=== PATIENT | female | born 1950 | race Caucasian/White ===

== ENCOUNTER 2019-05-04 14:44 | Outpatient (CLI) | payer OTHER, SELFPAY ==
--- NOTE | 2019-05-04 14:55 | MM_ITS ---
WS: [id number] BILATERAL DIGITAL SCREENING MAMMOGRAPHY WITH CAD CLINICAL INFORMATION: SCREENING HISTORY: Screening mammogram. No current complaints. COMPARISON: December 03, 2015 and November 28, 2014 TECHNIQUE: Bilateral CC and MLO views. FINDINGS: Scattered fibroglandular densities bilaterally. No suspicious focal mass, asymmetry, calcifications, or architectural distortion. No evidence of malignancy. Lucent centered calcifications. Vascular calc ifications. Clustered calcifications. MM/[id number] IMPRESSION: BI-RADS: 2-Benign FOLLOW UP: 1 Year Follow-up Recommend return to annual screening mammography.
== END 2019-05-04 14:45 | disposition home or self-care (01) ==
PROVIDERS: Family Provider Family Medicine; PCP Family Medicine; Visit Provider Nurse Practitioner Family
DX: Z12.31 Encounter for screening mammogram for malignant neoplasm of breast (principal)
CPT/HCPCS: 77067

== ENCOUNTER 2021-08-12 13:15 | Outpatient (CLI) | payer MEDICARE, SELFPAY ==
--- NOTE | 2021-08-12 13:22 | MM_ITS ---
WS: [id number] BILATERAL 3D TOMOSYNTHESIS DIGITAL SCREENING MAMMOGRAPHY WITH CAD CLINICAL INFORMATION: SCREEN HISTORY: Screening mammogram. No current complaints. COMPARISON: May 04, 2019 TECHNIQUE: Bilateral CC and MLO views. FINDINGS: Scattered fibroglandular densities bilaterally. Stable punctate and clustered calcifications. Vascula r calcification. Stable intramammary lymph node upper outer LEFT breast. No suspicious focal mass, as ymmetry, calcifications, or architectural distortion. No evidence of malignancy. MM/[id number] IMPRESSION: BI-RADS: 2-Benign FOLLOW UP: 1 Year Follow-up Recommend return to annual screening mammography.
== END 2021-08-12 13:16 | disposition home or self-care (01) ==
LOC: RAD 13:18
PROVIDERS: PCP Family Medicine; Visit Provider Nurse Practitioner Family
DX: Z12.31 Encounter for screening mammogram for malignant neoplasm of breast (principal)
CPT/HCPCS: 77063; 77067

== ENCOUNTER → 2021-09-03 11:40 | Outpatient (BNVA) | payer MEDICARE, SELFPAY | PROVIDERS: PCP Family Medicine; Visit Provider Family Medicine | DX: I10 Essential (primary) hypertension (principal); E78.5 Hyperlipidemia, unspecified; G89.29 Other chronic pain | CPT/HCPCS: 80053; 80061; 84443; 85025 ==

== ENCOUNTER → 2021-12-03 11:30 | Outpatient (BNVA) | payer MEDICARE, SELFPAY | PROVIDERS: PCP Family Medicine; Visit Provider Family Medicine | DX: I10 Essential (primary) hypertension (principal); M10.9 Gout, unspecified; E78.5 Hyperlipidemia, unspecified; G89.29 Other chronic pain | CPT/HCPCS: 80053; 80061; 84443; 84550; 85025 ==

== ENCOUNTER → 2022-01-10 10:32 | Outpatient (BNVA) | payer MEDICARE, SELFPAY | PROVIDERS: PCP Family Medicine; Visit Provider Family Medicine | DX: M25.511 Pain in right shoulder (principal) | CPT/HCPCS: 73030 ==

== ENCOUNTER → 2022-03-04 12:40 | Outpatient (BNVA) | payer MEDICARE, SELFPAY | PROVIDERS: PCP Family Medicine; Visit Provider Family Medicine | DX: I10 Essential (primary) hypertension (principal); M10.9 Gout, unspecified; E78.5 Hyperlipidemia, unspecified; G89.29 Other chronic pain | CPT/HCPCS: 80053; 80061; 84443; 84550; 85025 ==

== ENCOUNTER → 2022-06-16 10:58 | Outpatient (BNVA) | payer MEDICARE, SELFPAY | PROVIDERS: PCP Family Medicine; Visit Provider Nurse Practitioner Family | DX: R05.8 Other specified cough (principal) | CPT/HCPCS: 87400; 87426 ==

== ENCOUNTER 2022-08-21 13:00 | Outpatient (CLI) | payer MEDICARE, SELFPAY ==
--- NOTE | 2022-08-21 13:08 | MM_ITS ---
WS: [id number] BILATERAL SCREENING DIGITAL TOMOSYNTHESIS MAMMOGRAM WITH CAD HISTORY: SCREENING COMPARISON: 08/12/2021 and 05/04/2019 Bilateral CC and MLO views with tomosynthesis and synthetic mammography submitted. Computer aided det ection analyzed. Breast composition: There are scattered areas of fibroglandular density. No suspicious masses, microc alcifications or architectural distortion. Benign lucent centered calcifications within each breast. MM/[id number] IMPRESSION: BI-RADS: 2-Benign FOLLOW UP: 1 Year Follow-up
== END 2022-08-21 13:01 | disposition home or self-care (01) ==
PROVIDERS: PCP Family Medicine; Visit Provider Family Medicine
DX: Z12.31 Encounter for screening mammogram for malignant neoplasm of breast (principal)
CPT/HCPCS: 77063; 77067

== ENCOUNTER → 2022-10-17 15:00 | Outpatient (BNVA) | payer MEDICARE, SELFPAY | PROVIDERS: PCP Family Medicine; Visit Provider Nurse Practitioner Family | DX: R39.9 Unspecified symptoms and signs involving the genitourinary system (principal) | CPT/HCPCS: 81000 ==

== ENCOUNTER → 2022-10-20 16:26 | Outpatient (BNVA) | payer MEDICARE, SELFPAY | PROVIDERS: PCP Family Medicine; Visit Provider Nurse Practitioner Family | DX: R60.9 Edema, unspecified (principal) | CPT/HCPCS: 80053; 83880; 85025 ==

== ENCOUNTER → 2022-11-25 14:36 | Outpatient (BNVA) | payer MEDICARE, SELFPAY | PROVIDERS: PCP Family Medicine; Visit Provider Nurse Practitioner Family | DX: R60.9 Edema, unspecified (principal) | CPT/HCPCS: 80053; 83880; 85025 ==

== ENCOUNTER → 2023-06-08 13:16 | Outpatient (BNVA) | payer MEDICARE, SELFPAY | PROVIDERS: PCP Family Medicine; Visit Provider Family Medicine | DX: I10 Essential (primary) hypertension (principal); E78.5 Hyperlipidemia, unspecified; M10.9 Gout, unspecified | CPT/HCPCS: 80053; 80061; 84443; 84550; 85025 ==

== ENCOUNTER 2023-09-09 13:43 | Outpatient (CLI) | payer MEDICARE, SELFPAY ==
--- NOTE | 2023-09-09 13:49 | XRR_ITS ---
PROCEDURE INFORMATION: Exam: XR Left Shoulder Exam date and time: 09/09/2023 2:03 PM Age: 72 years old Clinical indication: Injury or trauma; Fall; Blunt trauma (contusions or hematomas); Shoulder; Left; Injury date: 1 week ago; Additional info: M25.512 - pain in left shoulder TECHNIQUE: Imaging protocol: Radiologic exam of the left shoulder. Views: 2 or more views. COMPARISON: No relevant prior studies available. FINDINGS: Bones/joints: Normal. No fracture or dislocation. No acute osseous or joint abnormality. Soft tissues: Normal. XR/XR shoulder LT min 2V* [id number] IMPRESSION: No acute findings.
== END 2023-09-09 13:44 | disposition home or self-care (01) ==
LOC: RAD 13:44
PROVIDERS: PCP Family Medicine; Visit Provider Family Medicine
DX: S40.012A Contusion of left shoulder, initial encounter (principal); M25.512 Pain in left shoulder; W19.XXXA Unspecified fall, initial encounter
CPT/HCPCS: 73030

== ENCOUNTER → 2023-09-24 11:10 | Outpatient (BNVA) | payer MEDICARE, SELFPAY | PROVIDERS: PCP Family Medicine; Visit Provider Family Medicine | DX: R30.0 Dysuria (principal) | CPT/HCPCS: 81000 ==

== ENCOUNTER → 2023-10-07 15:17 | Outpatient (BNVA) | payer MEDICARE, SELFPAY | PROVIDERS: PCP Family Medicine; Visit Provider Family Medicine | DX: R30.0 Dysuria (principal) | CPT/HCPCS: 81000 ==

== ENCOUNTER → 2023-10-19 14:37 | Outpatient (BNVA) | payer MEDICARE, SELFPAY | PROVIDERS: PCP Family Medicine; Visit Provider Family Medicine | DX: R05.9 Cough, unspecified (principal); U07.1 COVID-19 | CPT/HCPCS: 87426 ==

== ENCOUNTER 2023-11-24 06:30 | Outpatient (RCR) | payer MEDICARE, SELFPAY | END 2023-12-24 23:59 | disposition home or self-care (01) | LOC: TPT 06:30 | PROVIDERS: PCP Nurse Practitioner Family; Visit Provider Nurse Practitioner Family | DX: M25.512 Pain in left shoulder (principal) | CPT/HCPCS: 97110; 97162 ==

== ENCOUNTER → 2023-11-30 14:15 | Outpatient (BNVA) | payer MEDICARE, SELFPAY | PROVIDERS: PCP Nurse Practitioner Family; Visit Provider Podiatrist Foot & Ankle Surgery | DX: M21.70 Unequal limb length (acquired), unspecified site (principal) | CPT/HCPCS: 77073 ==

== ENCOUNTER → 2023-12-14 10:52 | Outpatient (BNVA) | payer MEDICARE, SELFPAY | PROVIDERS: PCP Nurse Practitioner Family; Referring Provider Nurse Practitioner Family; Visit Provider Specialist | DX: M25.512 Pain in left shoulder (principal); G89.29 Other chronic pain | CPT/HCPCS: 20610; 73030; 99204; J1100; J2795; J3301 ==

== ENCOUNTER → 2023-12-17 12:20 | Outpatient (BNVA) | payer MEDICARE, SELFPAY | PROVIDERS: PCP Nurse Practitioner Family; Visit Provider Nurse Practitioner Family | DX: E78.5 Hyperlipidemia, unspecified (principal); M10.9 Gout, unspecified | CPT/HCPCS: 80053; 80061; 84443; 84550; 85025 ==

== ENCOUNTER 2023-12-25 06:00 | Outpatient (RCR) | payer MEDICARE, SELFPAY | END 2024-01-19 23:59 | disposition home or self-care (01) | LOC: TPT 06:00 | PROVIDERS: PCP Nurse Practitioner Family; Visit Provider Nurse Practitioner Family | DX: M25.512 Pain in left shoulder (principal) | CPT/HCPCS: 97110 ==

== ENCOUNTER → 2024-03-18 10:28 | Outpatient (BNVA) | payer MEDICARE, SELFPAY | PROVIDERS: PCP Nurse Practitioner Family; Visit Provider Specialist | DX: M19.012 Primary osteoarthritis, left shoulder | CPT/HCPCS: 20610; J1100; J2795; J3301 ==

== ENCOUNTER → 2024-04-08 12:29 | Outpatient (BNVA) | payer MEDICARE, SELFPAY | PROVIDERS: Family Provider Nurse Practitioner Family; PCP Nurse Practitioner Family; Visit Provider Nurse Practitioner Family | DX: R19.7 Diarrhea, unspecified (principal) | CPT/HCPCS: 83630; 87045; 87177; 87209; 87338; 87427; 87449 ==

== ENCOUNTER → 2024-05-25 13:11 | Outpatient (BNVA) | payer MEDICARE, SELFPAY | PROVIDERS: Family Provider Nurse Practitioner Family; PCP Nurse Practitioner Family; Visit Provider Nurse Practitioner Family | DX: R19.7 Diarrhea, unspecified (principal) | CPT/HCPCS: 83993; 87493 ==

== ENCOUNTER → 2024-06-10 10:11 | Outpatient (BNVA) | payer MEDICARE, SELFPAY | PROVIDERS: Family Provider Nurse Practitioner Family; PCP Nurse Practitioner Family; Visit Provider Specialist | DX: M19.012 Primary osteoarthritis, left shoulder (principal) | CPT/HCPCS: 20610; J1100; J2795; J3301; J9999 ==

== ENCOUNTER → 2024-06-22 12:12 | Outpatient (BNVA) | payer MEDICARE, SELFPAY | PROVIDERS: Family Provider Nurse Practitioner Family; PCP Nurse Practitioner Family; Visit Provider Nurse Practitioner Family | DX: I10 Essential (primary) hypertension (principal) | CPT/HCPCS: 85025 ==

== ENCOUNTER 2024-08-10 13:24 | Emergency (ER) | payer MEDICARE, SELFPAY ==
[2024-08-10 13:28] VITALS: BP 109/63; PULSE 72; RESP 16; TEMP 36.7; O2SAT 96; BMI 29.0
--- NOTE | 2024-08-10 14:17 | W.ED.NAVMDI ---
HPI - Nausea/Vomiting/Diarrhea General: Chief complaint: Nausea/Vomiting/Diarrhea Stated complaint: severe diarrhea, vomitting Time Seen by Provider: 08/10/24 13:52 History of Present Illness: 73-year-old female has had months of chronic diarrhea has had extensive workup including endoscopy stool cultures etc. Today recently had stopped the omeprazole concerned that it may actually be inducing more vomiting. She did okay for a few days now she is having significant acid reflux and feels like she is not keeping much down in terms of food or fluids. No fever sweats chills no melena medic easy melena hematemesis cough cramps no dysuria urgency or frequency no chest pain no shortness of breath Associated symtoms: Denies chest pain or dysuria Related Data Home Medications ?Medication ?Instructions ?Recorded ?Confirmed aspirin 81 mg tablet,delayed 81 mg PO QAM 09/03/21 08/10/24 release (Adult Low Dose Aspirin) fexofenadine 180 mg tablet 180 mg PO QAM 09/03/21 08/10/24 (Allergy Relief (fexofenadine)) inulin 2 gram chewable tablet 2 g PO DAILY PRN Constipation 09/03/21 08/10/24 (Fiber Gummies) coenzyme Q10 10 mg capsule 10 mg PO TID 05/21/23 08/10/24 allopurinol 300 mg tablet 300 mg PO QAM 08/10/24 08/10/24 amlodipine 2.5 mg tablet 2.5 mg PO DAILY 08/10/24 08/10/24 amlodipine 5 mg tablet 5 mg PO DAILY 08/10/24 08/10/24 clobetasol 0.05 % topical cream 1 applic topical BID 08/10/24 08/10/24 neomycin 3.5 mg/g-polymyxin B 1 applic ophthalmic (eye) DAILY 08/10/24 08/10/24 10,000 unit/g-dexameth 0.1 % eye oint omeprazole 40 mg capsule,delayed 40 mg PO DAILY 08/10/24 08/10/24 release pravastatin 40 mg tablet 40 mg PO QPM 08/10/24 08/10/24 triamcinolone acetonide 0.1 % 1 applic topical BID 08/10/24 08/10/24 topical cream valsartan 160 mg tablet 160 mg PO QAM 08/10/24 08/10/24 Previous Rx's ?Medication ?Instructions ?Recorded Orthopedic shoes with a 3cm #1 ea 11/30/23 external lift to left gabapentin 300 mg capsule 300 mg PO TID #270 caps 12/17/23 celecoxib 200 mg capsule (Celebrex) 200 mg PO BID #180 caps 05/05/24 Allergies Allergy/AdvReac Type Severity Reaction Status Date / Time cefdinir AdvReac Severe ADR-Diarrhe Verified 08/10/24 13:34 a Review of Systems Const: Denies: fever(s) or chills Card: Denies: chest pain Resp: Denies: dyspnea GI: Denies: abdominal pain : Denies: dysuria, urinary frequency or urinary urgency Musc: Denies: neck pain or back pain Skin/Breast: Denies: rash PFSH ED PFSH: Medical History Chronic GERD Family history of Crohn's disease Diarrhea Left shoulder pain Enrolled in chronic care management Hypertension Blind Gout Glaucoma Hyperlipidemia Chronic pain Cataract and glaucoma syndrome Surgical History History of bilateral total hip arthroplasty History of left oophorectomy History of back surgery Family History Mother Hypertension Heart disease Cancer breast cancer with mets Family/Other Diabetes Cancer Social History Smoking and tobacco/nicotine status: never used tobacco/nicotine Alcohol intake: never Substance/Drug Use: never Caregiver/support person: Yes (son) Lives independently: Yes Housing: House Marital status: / Current occupational status: disabled Current gender identity: Female Special haydee needs: No Female Reproductive History: Para: 2 Physical Exam HENMT: COMMON NORMALS: normocephalic, atraumatic and hearing grossly normal bilaterally HEAD & SCALP: normocephalic and atraumatic Resp: COMMON NORMALS: normal respiratory effort, No retractions, No use of accessory muscles and clear to auscultation bilaterally AUSCULTATION: clear to auscultation bilaterally Cardio: COMMON NORMALS: regular rate, regular rhythm and No murmurs present (Cardio) RATE: regular rate RHYTHM: regular rhythm GI: COMMON NORMALS: Soft to palpation and No hepatosplenomegaly present AUSCULTATION: Yes normoactive bowel sounds PALPATION: Yes Soft to palpation, No Tenderness to palpation present (GI), No Guarding due to palpation present (GI) and Yes No hepatosplenomegaly present Extremity: COMMON NORMALS: normal to inspection, capillary refill normal, no clubbing, cyanosis or edema, no calf tenderness and no pedal edema Skin: COMMON NORMALS: no rashes or lesions noted GENERAL SKIN EXAM: no rashes or lesions noted Course Vital Signs: Vital signs: Vital Signs Temperature 98.0 F 08/10/24 13:28 Pulse Rate 63 08/10/24 16:28 Respiratory Rate 16 08/10/24 13:28 Blood Pressure 100/58 08/10/24 16:28 Pulse Oximetry 99 08/10/24 16:28 MDM - Nausea/Vomiting/Diarrhea Medical Decision Making Mild dehydration with slight increase in BUN and creatinine fluids given. We did repeat stool cultures and C. difficile she has not recently been on antibiotics. She has had extensive workup as an outpatient with no significant findings almost sounds as this may be more functional just given the history that they gave us. Patient will be discharged home clear liquid diet. Follow-up with primary care doctor. Lab Data 08/10/24 14:16 08/10/24 14:16 Laboratory Results WBC 9.25 10^3/uL (3.29-11.43) 08/10/24 14:16 RBC 3.19 10^6/uL (3.85-5.65) L 08/10/24 14:16 Hgb 11.10 g/dL (11.27-16.99) L 08/10/24 14:16 Hct 35.4 % (36-47) L 08/10/24 14:16 MCV 111.0 fl (85-98) H 08/10/24 14:16 MCH 34.8 pg (27-33) H 08/10/24 14:16 MCHC 31.4 g/dL (30-55) 08/10/24 14:16 RDW 13.4 % (12.1-15.1) 08/10/24 14:16 Plt Count 195 10^3/cmm (157-399) 08/10/24 14:16 MPV 9.4 fL (7.4-10.4) 08/10/24 14:16 Neut % (Auto) 76.0 % 08/10/24 14:16 Lymph % (Auto) 14.7 % 08/10/24 14:16 [place] % (Auto) 8.0 % 08/10/24 14:16 Eos % (Auto) 0.6 % 08/10/24 14:16 Baso % (Auto) 0.4 % 08/10/24 14:16 Neut # (Auto) 7.02 10^3/uL (1.8-7.7) 08/10/24 14:16 Lymph # (Auto) 1.4 10^3/uL (0.8-4.8) 08/10/24 14:16 [place] # (Auto) 0.7 10^3/uL (0.2-0.9) 08/10/24 14:16 Eos # (Auto) 0.1 10^3/uL (0.0-0.8) 08/10/24 14:16 Baso # (Auto) 0.0 10^3/uL (0.0-0.1) 08/10/24 14:16 Nucleated RBC % (auto) 0 % 08/10/24 14:16 Nucleated RBCs # 0.0 /100WBC 08/10/24 14:16 Sodium 138 mmol/L (136-145) 08/10/24 14:16 Potassium 4.5 mmol/L (3.5-5.1) 08/10/24 14:16 Chloride 111 mmol/L (98-107) H 08/10/24 14:16 Carbon Dioxide 13 mmol/L (22-29) L 08/10/24 14:16 Anion Gap 18.5 (5-19) 08/10/24 14:16 BUN 26 mg/dL (8-23) H 08/10/24 14:16 Creatinine 1.6 mg/dL (0.5-0.9) H 08/10/24 14:16 GFR Calculation Not Reportable 08/10/24 14:16 Glucose 108 mg/dL (65-115) 08/10/24 14:16 Calculated Osmolality 291 mOsm/kg (285-295) 08/10/24 14:16 Calcium 9.9 mg/dL (8.5-10.5) 08/10/24 14:16 Total Bilirubin 0.5 mg/dL (0.15-1.2) 08/10/24 14:16 AST 22 U/L (0-32) 08/10/24 14:16 ALT 12 U/L (0-33) 08/10/24 14:16 Alkaline Phosphatase 86 U/L (35-105) 08/10/24 14:16 Total Protein 7.1 g/dL (6.6-8.7) 08/10/24 14:16 Albumin 4.3 g/dL (3.5-5.2) 08/10/24 14:16 Globulin 2.8 g/dL (1.3-4.6) 08/10/24 14:16 Lipase 29 U/L (13-60) 08/10/24 14:16 C. difficile (PCR) Negative (Negative) 08/10/24 16:01 No radiology studies performed this visit Discharge Plan Discharge Patient Disposition: Home Clinical Impression: Diarrhea, Dehydration Condition: Stable Prescriptions: No Action coenzyme Q10 10 mg capsule 10 mg PO TID aspirin [Adult Low Dose Aspirin] 81 mg tablet,delayed release (DR/EC) 81 mg PO QAM fexofenadine [Allergy Relief (fexofenadine)] 180 mg tablet 180 mg PO QAM Fiber Gummies 2 gram tablet,chewable 2 g PO DAILY PRN (Reason: Constipation) gabapentin 300 mg capsule 300 mg PO TID Qty: 270 3RF (DME) Orthopedic shoes with a 3cm external lift to left See Rx Instructions .Route .MEDSUPPLY Qty: 1 0RF Rx Instructions: As directed celecoxib [Celebrex] 200 mg capsule 200 mg PO BID Qty: 180 3RF omeprazole 40 mg capsule,delayed release(DR/EC) 40 mg PO DAILY neomycin-polymyxin B-dexameth 3.5 mg/g-10,000 unit/g-0.1 % ointment 1 applic ophthalmic (eye) DAILY pravastatin 40 mg tablet 40 mg PO QPM clobetasol 0.05 % cream 1 applic topical BID amlodipine 2.5 mg tablet 2.5 mg PO DAILY Rx Instructions: Along with 5mg to=7.5mg total amlodipine 5 mg tablet 5 mg PO DAILY Rx Instructions: Along with 2.5mg to=7.5mg total triamcinolone acetonide 0.1 % cream 1 applic topical BID allopurinol 300 mg tablet 300 mg PO QAM valsartan 160 mg tablet 160 mg PO QAM Discharge Orders: Discharge ED (Routine); Ordered 08/10/24 Ordered By: Leni Poe Referrals: Suzan Angelo FNP [Primary Care Provider, Family Practice] Discharge Diet: Advance as tolerated Patient Instructions: Opioid Safety, Pain Management Activity Restrictions/Additional Instructions: Thank you for choosing [facility] for your healthcare needs today. You have been screened and evaluated and felt safe for discharge. Health conditions do change or evolve sometimes and as such it is important that you follow up with your Primary Doctor to be re checked, 3-5 days is a general good time frame for follow up. You are always welcome to return to the ED for re assessment if your symptoms are worsening or you have new concerns Print Language: Serbian Coding Level of Care Code ED Journalism Instructor for Maris Abraham
[2024-08-10 14:25] LABS: Basophils % 0.4 %; Eosinophils # 0.1 10^3/uL (0.0-0.8); Eosinophils % 0.6 %; Hematocrit 35.4 % (36-47); Lymphocytes # 1.4 10^3/uL (0.8-4.8); Lymphocytes % 14.7 %; Mean Corpuscular HGB Conc 31.4 g/dL (30-55); Mean Corpuscular Hemoglobin 34.8 pg (27-33); Mean Platelet Volume 9.4 fL (7.4-10.4); Monocytes # 0.7 10^3/uL (0.2-0.9); Neutrophils # 7.02 10^3/uL (1.8-7.7); Nucleated Red Blood Cells % 0 %; Platelet Count 195 10^3/cmm (157-399); Red Blood Count 3.19 10^6/uL (3.85-5.65); Red Cell Distribution Width 13.4 % (12.1-15.1); White Blood Count 9.25 10^3/uL (3.29-11.43)
[2024-08-10 14:34] VITALS: BP 114/71; PULSE 74; O2SAT 97
[2024-08-10] MEDS: lidocaine 2% viscous 15 ML, aluminum-mag hydrox-simethicon 30 ML, sucralfate oral liq 1 GM PO (14:38)
[2024-08-10] MEDS: sodium chloride 0.9% 1,000 ML 999 ML IV ×2 (14:38→15:25)
[2024-08-10 14:42] LABS: Alanine Aminotransferase 12 U/L (0-33); Albumin Level 4.3 g/dL (3.5-5.2); Alkaline Phosphatase 86 U/L (35-105); Blood Urea Nitrogen 26 mg/dL (8-23); Calcium 9.9 mg/dL (8.5-10.5); Carbon Dioxide 13 mmol/L (22-29); Chloride 111 mmol/L (98-107); Creatinine Clr Calc Pharmacy 31.1556; Globulin 2.8 g/dL (1.3-4.6); Glucose 108 mg/dL (65-115); Lipase 29 U/L (13-60); Osmolality Calculated 291 mOsm/kg (285-295); Sodium 138 mmol/L (136-145); Total Bilirubin 0.5 mg/dL (0.15-1.2); Total Protein 7.1 g/dL (6.6-8.7)
[2024-08-10 14:44] LABS: Anion Gap 18.5 (5-19); Aspartate Amino Transferase 22 U/L (0-32); Potassium 4.5 mmol/L (3.5-5.1)
[2024-08-10 16:28] VITALS: BP 100/58; PULSE 63; O2SAT 99
[2024-08-10 17:33] LABS: C.Diff PCR (Lab) NEGATIVE (Negative)
== END 2024-08-10 16:31 | disposition home or self-care (01) ==
PROVIDERS: Emergency Medicine; Emergency Provider Family Medicine; PCP Nurse Practitioner Family
DX: R19.7 Diarrhea, unspecified (principal); E86.0 Dehydration; Z79.82 Long term (current) use of aspirin; E78.5 Hyperlipidemia, unspecified; I10 Essential (primary) hypertension
CPT/HCPCS: 36415; 80053; 83690; 85025; 87045; 87427; 87449; 87493; 99283; J7030; J9999

== ENCOUNTER → 2024-08-19 11:34 | Outpatient (BNVA) | payer MEDICARE, SELFPAY | PROVIDERS: PCP Nurse Practitioner Family; Visit Provider Nurse Practitioner Family | DX: R19.7 Diarrhea, unspecified (principal) | CPT/HCPCS: 82150 ==

== ENCOUNTER 2024-08-21 23:30 | Emergency (ER) | payer MEDICARE, SELFPAY ==
--- OUTSIDE RECORDS SUMMARY | 2024-07-25 10:00 | XMS_ITS ---
Author Organization [facility] Address [address] [place] [address] Care Team Providers Care Hair Dryer Name Role Phone Suzan Angelo APRN Primary Care Provider Pastor Bill Unavailable [phone] Russ Chavira Unavailable [phone] REASON FOR VISIT chronic diarrhea, abdominal pain Medications Medication SIG (Take, Route, Frequency, Duration) Notes Start Date End Date Status amLODIPine Besylate 2.5 MG 1 tablet in a ddition to 5mg tab Orally once daily in evening for blood pressure for 90 days 08/19/2021 Active Gabapentin 300 MG 1 capsule Orally TID for 90 days Active Fexofenadine HCl 180 MG 1 tablet Swallow whole with water; do not take with fruit juices. Orally Once a day Active Centrum Adults - 1 tablet Orally once daily Active Aspirin 81 81 MG 1 tablet Orally Once a day Active amLODIPine Besylate 5 MG TAKE 1 TABLET E VERY EVENING for 90 Active Allopurinol 100 MG TAKE 1 TABLET TWICE DAILY for 90 Active Valsartan 80 MG 1 tablet Orally Once a day for 30 days 08/21/2021 Active Triamcinolone Acetonide 0.1 % APPLY A THIN FILM TOPICALLY TO AFFECTED AREA(S) TWICE DAILY FOR MAX LENGTH OF 14 DAYS for 60 Active Pravastatin Sodium 80 MG TAKE 1 TABLET E VERY DAY AT BEDTIME for 90 Active Omeprazole 20 MG 1 capsule 1/2 to 1 h our before morning meal Orally Once a day Active Latanoprost 0.005 % 1 drop into affected eye in the evening Ophthalmic Once a day Active Social History Tobacco Use: Social History Observation Description Date Details (start date - stop date) Never Smoker NA - NA Tobacco Control (Standard) Question Answer Notes Tobacco use: Nonsmoker Problems Problem Type SNOMED Code ICD Code Onset Dates Problem Status W/U Status Risk Notes Problem Gastroesophageal reflux disease (876329569) Gastroesophageal reflux disease, unspecified whether esophagitis present (K21.9) Active confirmed Encounters Encounter Location Date Provider Diagnosis [facility] [address] [place] [address] 07/25/2024 Russ Chavira Gastroesophageal ref lux disease, unspecified whether esophagitis present K21.9 and Chronic diarrhea K52.9 Assessments Encounter Date Diagnosis (ICD Code) Assessment Notes Treatment Notes Treatment Clinical Notes Section Notes 07/25/2024 Gastroesophageal reflux disease, unspecified whether esophagitis present (ICD-10 - K21.9) Diagnostic EGD today 07/25/2024 Chronic diarrhea (ICD-10 - K52.9) Diagnostic colonoscopy today. Plan Of Treatment Treatment Notes Assessment Notes Gastroesophageal reflux dise ase, unspecified whether esophagitis present Diagnostic EGD today Chronic diarrhea Diagnostic colonosco py today. 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 Chronic diarrhea, abdominal pain. * HPI: P arsenioviar Note: Ms. Salmon is a 73-year-old female here for diagnostic EGD and colonoscopy. History of chronic GERD with breakthrough symptoms despite omeprazole. Complains of chronic diarrhea with up to 15+ stools per day and occasional associated lower abdominal pain. Family history of Crohn's disease in her mother and sister. No family history of colon cancer. * ROS: G eneral - Multi System: Constitutional D enies fever, chills, recent weight loss.?Cardiovascular D enies any recent chest pain. R espiratory D enies any shortness of breath, cough. G astrointestinal S ee HPI. * Medical History: I rritable bowel syndrome, Gout, Degenerative bone disease, Eczema, Cataracts, bilateral, Glaucoma, Bradycardia, Essential hypertension, Hypercholesterolemia, Back pain, Osteoarthritis, hip, Covid, 06/2021. * Surgical History: ( B) Hip replacement , Ovary removal; left , Back surgery x 5 , Cataract surgery; bilateral , (B) eye removal 06/2023, Colonoscopy- [place] - 10 yr recall - diverticulosis only 2014. * Hospitalization/Major Diagno stic Procedure: H ip replacement , Ovary removal , Back surgery . * Family History: F ather: , Pancreatic cancer, type 2 diabetes, rheumatoid arthritis, alcoholism. M other: , IBS, osteoporosis, cataracts, congestive heart failure, breast cancer, lung cancer, bronchiectasis. S iblings: Triplets: Orville - diverticulitis, IBSJan: Part of colon removed. IBS, ulcers. passed in May. * Social History: T obacco Use: T obacco Control (Standard) T obacco use: N onsmoker * Medications: T aking Allopurinol 100 MG Tablet TAKE 1 TABLET TWICE DAILY , Taking amLODIPine Besylate 5 MG Tablet TAKE 1 TABLET EVERY EVENING , Taking amLODIPine Besylate 2.5 MG Tablet 1 tablet in addition to 5mg tab Orally once daily in evening for blood pressure , Taking Aspirin 81 81 MG Tablet Delayed Release 1 tablet Orally Once a day , Taking Centrum Adults - Tablet 1 tablet Orally once daily , Taking Fexofenadine HCl 180 MG Tablet 1 tablet Swallow whole with water; do not take with fruit juices. Orally Once a day , Taking Gabapentin 300 MG Capsule 1 capsule Orally TID , Taking Latanoprost 0.005 % Solution 1 drop into affected eye in the evening Ophthalmic Once a day , Taking Omeprazole 20 MG Capsule Delayed Release 1 capsule 1/2 to 1 hour before morning meal Orally Once a day , Taking Pravastatin Sodium 80 MG Tablet TAKE 1 TABLET EVERY DAY AT BEDTIME , Taking Triamcinolone Acetonide 0.1 % Cream APPLY A THIN FILM TOPICALLY TO AFFECTED AREA(S) TWICE DAILY FOR MAX LENGTH OF 14 DAYS , Taking Valsartan 80 MG Tablet 1 tablet Orally Once a day Objective: * Vitals: * Examination: G eneral Examination: GENERAL APPEARANCE: a lert , pleasant, in no acute distress. HEART: R egular rate and rhythm. LUNGS: c lear to auscultation bilaterally. ABDOMEN: b owel sounds present, soft, nontender, nondistended. Assessment: * Assessment: 1. G astroesophageal reflux disease, unspecified whether esophagitis present - K21.9 2 . C hronic diarrhea - K52.9 Plan: * Treatment: 2. C hronic diarrhea Notes: Diagnostic colonoscopy today. * Billing Information: * Visit Code: * Procedure Codes: * Electronic signature of Will latrice Chavira MD on 08/21/2024 at 11:38 PM CDT Sign off status: Pending * Provider: Sania Chavira MD Date: 07/25/2024 Generated for Shira cheema/Estevan/Jenniferitting on: 08/21/2024 11:38 PM CDT History and Physical Notes * HPI (History of Present Illness) Category Sub-Category Detail Notes Category Not es Provider Note Ms. Salmon is a 73-year-old female here for diagnostic EGD and colonoscopy. History of chronic GERD with breakthrough symptoms despite omeprazole. Complains of chronic diarrhea with up to 15+ stools per day and occasional associated lower abdominal pain. Family history of Crohn's disease in her mother and sister. No family history of colon cancer. Examination Category Sub-Category Detail Notes Category Not es General Examination GENERAL APPEARANCE: alert , pleasant, in no acute distress HEART: Regular rate and rhy thm LUNGS: clear to auscultatio n bilaterally ABDOMEN: bowel sounds present , soft, nontender, nondistended
--- OUTSIDE RECORDS SUMMARY | 2024-08-04 11:35 | XMS_ITS ---
Author Organization [facility] Address [address] [place] [address] Care Team Providers Care Casino Supervisor Name Role Phone Suzan Angelo APRN Primary Care Provider Pastor Bill Unavailable [phone] Russ Chavira [phone] REASON FOR VISIT Procedure review Encounters Encounter Location Date Provider Diagnosis [facility] [address] [place] [address] 08/04/2024 Russ Chavira Plan Of Treatment Next Appt Details Provider Name:Pastor sheppard, 08/22/2024 11:00:00 AM, [address] [place], [address], Progress Notes * Jami SALMON MDOB:1950 (73 yo F)Acc No.[id number]:08/04/2024 Patient: Precious Jami PEREZ :1950 A ge:73 Y S ex:Female Address:[address] [place], [place] [address] [address] Subjective: * Chief Complaints: * P rocedure review * Medical History: * Surgical History: * Hospitalization/Major Diagno stic Procedure: * Medications: Objective: * Vitals: * Physical Examination: Assessment: Plan: * Treatment: * Procedure Codes: * * Date:
--- OUTSIDE RECORDS SUMMARY | 2024-08-15 09:56 | XMS_ITS ---
Author Organization [facility] Address [address] [place] [address] Care Team Providers Care Director Medical Name Role Phone Petey HERNANDEZN Suzan Primary Care Provider Pastor Bill [phone] REASON FOR VISIT Diarrhea Encounters Encounter Location Date Provider Diagnosis [facility] [address] [place] [address] 08/15/2024 Pastor Serra Abnormal pancreatic function test R94.8 Assessments Encounter Date Diagnosis (ICD Code) Assessment Notes Treatment Notes Treatment Clinical Notes Section Notes 08/15/2024 Abnormal pancreatic function test (ICD-10 - R94.8) Plan Of Treatment Pending Test Test Name Order Date Amylase (B) [id number] 08/15/2024 Lipase [id number] 08/15/2024 Next Appt Details Provider Name:Pastor sheppard, 08/22/2024 11:00:00 AM, [address] [place], [address], Progress Notes * Jami SALMON MDOB:1950 (73 yo F)Acc No.[id number]:08/15/2024 Patient: Jami AGUILAR :1950 A ge:73 Y S ex:Female Address:[address] [place] [id number] Subjective: * Chief Complaints: * D iarrhea * Medical History: * Surgical History: * Hospitalization/Major Diagno stic Procedure: * Medications: Objective: * Vitals: * Physical Examination: Assessment: * Assessment: 1. A bnormal pancreatic function test - R94.8 (Primary) Plan: * Treatment: * Procedure Codes: * * Date:
--- OUTSIDE RECORDS SUMMARY | 2024-08-21 23:37 | XMS_ITS | Patient Health Record ---
Author Organization 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 Name Role Phone Suzan Angelo APRN Primary Care Provider Pastor Bill Unavailable [phone] ChaviraRuss sheppard Unavailable [phone] Allergies No Known Allergies Results Component Value Reference Range Notes CT Abdomen, Pelvis w/ Contra [id number] Reviewed date:06/05/2024 09:13:01 PM Interpretation: Performing Lab: Notes/Report: [id number] Diagnostic Colonoscopy-[id number] Reviewed date:08/04/2024 04:38:36 PM Interpretation: Performing Lab: Notes/Report: EGD, Upper GI Diagnostic-432 35 Reviewed date:08/04/2024 04:39:07 PM Interpretation: Performing Lab: Notes/Report: Bun Proc NC--NO CPT Reviewed date:06/05/2024 09:10:14 PM Interpretation: Performing Lab: Notes/Report: BUN 10 7-21 MG/DL Creat Proc NC--NO PCT Reviewed date:06/05/2024 09:10:00 PM Interpretation: Performing Lab: Notes/Report: Creat .79 .51-1.17 MG/DL V-edemco-p-benzoquinone imine (NAPQI) is a metabolite of acetaminophen, NAPQI concentrations of apparoximately 10 mg/L correlation to toxic levels of acetaminophen demonstrates a greater than or equil to 10% change in results. NAPQI concentrations greater than this may lead to falsely depressed results for patient samples. Use of this assay is not recommended for patients undergoing treatment with phenindione, due to the potential for falsely depressed results. CT Abdomen, Pelvis w/ Contra [id number] Reviewed date:06/05/2024 09:09:41 PM Interpretation: Performing Lab: Notes/Report: See Below For Report CT Abdomen, Pelvis w/ Contrast Read See Below For Report Schedule Confirmation Reviewed date:06/05/2024 09:10:29 PM Interpretation: Performing Lab: Notes/Report: CT Abdomen, Pelvis w/ Contrast CBC w\ Auto Diff 30116 Reviewed date:06/24/2024 11:29:56 AM Interpretation: Performing Lab: Notes/Report: Diagnosis Description: Lower abdominal pain, unspecified WBC 7.8 4.5-11.0 X10'3 RBC 3.42 4.00-5.20 X10'6 Hgb 11.6 12.0-16.0 G/DL Hct 35.8 36.0-46.0 % MCV 104.7 80.0-100.0 FL MCH 33.9 27.0-31.0 PG MCHC 32.4 31.0-37.0 G/DL Platelet 250 150-400 X10'3 RDW-SD 51.8 35.0-49.0 FL RDW-CV 13.4 12.2-15.6 % MPV 9.9 9.2-12.0 FL Neutro Auto% 55.7 40.0-70.0 % Lymph Auto% 33.8 22.0-44.0 % [place] Auto% 7.4 3.0-7.0 % Eos Auto% 1.9 2.0-4.0 % Baso Auto% 0.6 0.0-1.0 % Imm Gran% .6 .0-.4 % Neutro Abs 4.33 .80-7.70 Absolute Neutrophil Count 4330 Lymph Abs 2.64 .10-4.10 [place] Abs .58 .20-1.00 Eos Abs .15 .00-.40 Baso Abs .05 .00-.20 Imm Gran Abs .05 .00-.10 NRBC# .00 .00-.20 X10'3 NRBC% .00 .00-.20 /100 int act WBC's Comprehensive Metabolic Pane l (CMP) [id number] Reviewed date:06/24/2024 11:29:56 AM Interpretation: Performing Lab: Notes/Report: Diagnosis Description: Lower abdominal pain, unspecified Glucose Serum 80 71-110 MG/DL Testing perfor med at [facility], [address] [place] [address] [place] [address]. CLIA ID#: [id number] BUN 22 7-21 MG/DL Creat .91 .51-1.17 MG/DL Use of this assay is not recommended for patients undergoing treatment with phenindione, due to the potential for falsely depressed results. A-odsbhe-s-benzoquinone imine (NAPQI) is a metabolite of acetaminophen, NAPQI concentrations of apparoximately 10 mg/L correlation to toxic levels of acetaminophen demonstrates a greater than or equil to 10% change in results. NAPQI concentrations greater than this may lead to falsely depressed results for patient samples. GFR 67.1 Calculation per formed from GFR calculator provided by the [employer]. Glomerular Filtration rate(GRF) is the best overall index of kidney function. Normal GFR varies according to age,sex, body size, and declines with age. The [employer] recommends using the CKD-EPI Creatinine Equation(2020) to estimate GFR. BUN/Creat Ratio 24.2 12.0-20.0 % Total Protein 6.6 5.8-8.0 G/DL Albumin 5.0 3.2-4.8 G/DL Globulin 1.6 2.3-3.5 G/DL Alb/Glob 3.1 0.8-2.2 Calcium 9.8 8.7-10.4 MG/DL Sodium 141 136-145 MMOL/L Potassium 4.5 3.5-5.1 MMOL/L Chloride 108 98-107 MMOL/L CO2 23.9 20.0-31.0 MMOL/L Anion Gap 14 5-15 Alk Phos 92 46-116 Bili Total 1.0 .3-1.2 MG/DL Use of this ass ay is not recommended for patients undergoing treatment with eltrombopag due to the potential for falsely elevated results. AST/SGOT 17 15-37 UNIT/L ALT/SGPT 16 12-78 UNIT/L Osmo Serum,Calculated 294 280-300 MOSM/KG Ferritin 31925 Reviewed date:06/24/2024 11:29:56 AM Interpretation: Performing Lab: Notes/Report: Diagnosis Description: Lower abdominal pain, unspecified Diagnosis Description: Unspecified abnormal finding in specimens from other organs, systems and tissues Ferritin 145 8-388 ng/mL Iron Level 36918 Reviewed date:06/24/2024 11:29:56 AM Interpretation: Performing Lab: Notes/Report: Diagnosis Description: Lower abdominal pain, unspecified Diagnosis Description: Unspecified abnormal finding in specimens from other organs, systems and tissues Iron 94 50-170 MCG/DL Per Iron assay instruction for Use(IFU), patients treated with metal-binding drugs (e.g.deferoxamine) may have depressed iron values as chelated iron may not properly react in the iron assay. Testing was performed with this assay method. Lipase 60736 Reviewed date:06/24/2024 11:29:56 AM Interpretation: Performing Lab: Notes/Report: Diagnosis Description: Lower abdominal pain, unspecified Lipase Serum 47 73-393 UNIT/L Reason For Referral No Information Medications Medication SIG (Take, Route, Frequency, Duration) Notes Start Date End Date Status amLODIPine Besylate 2.5 MG 1 tablet in a ddition to 5mg tab Orally once daily in evening for blood pressure for 90 days 08/19/2021 Active amLODIPine Besylate 5 MG TAKE 1 [...] the evening Ophthalmic Once a day Active Gabapentin 300 MG 1 capsule Orally TID for 90 days Active Fexofenadine HCl 180 MG 1 tablet Swallow whole with water; do not take with fruit juices. Orally Once a day Active Centrum Adults - 1 tablet Orally once daily Active Aspirin 81 81 MG 1 tablet Orally Once a day Active Immunizations Vaccine Route Administration Date Status Comme nts Afluria Quadrivalent Influenza Vaccine 3 years+ IM Intramuscular 03/16/2020 Administered Flucelvax IM Intramuscular 01/02/2021 Administered Social History Tobacco Use: Social History Observation Description Date Details (start date - stop date) Never Smoker NA - NA Tobacco Control (Standard) Question Answer Notes Tobacco use: Nonsmoker AUDIT-C (Standard) Question Answer Notes Did you have a drink containing alcohol in the p ast year? No Points 0 Interpretation Negative Problems Problem Type SNOMED Code ICD Code Onset Dates Problem Status W/U Status Risk Notes Problem Gastro-esophageal reflux disease without esophagitis (777270261) Gastro-esophageal reflux disease without esophagitis (K21.9) Active confirmed Problem Acquired diverticulu m of esophagus (76093391) Diverticulum of esophagus, acquired (K22.5) Active confirmed Problem 08220060 Sciatica, unspecified side (M54.30) Active confirmed Problem 12091193 Essential hypertension (I10) Active confirmed Problem 292541248 Chronic GERD (K21.9) Active confirmed Problem 04849888 Leg length discrepancy (M21.70) Active confirmed Problem Hearing loss (02077243) Hearing loss (H91.90) Active confirmed Problem 120503183 Chronic gout wit hout tophus, unspecified cause, unspecified site (M1A.9XX0) Active confirmed Problem 51932354 Hypercholesterol emia (E78.00) Active confirmed Problem 044783453 Abnormal laborat ory test (R89.9) Active confirmed Problem 455284844 Lichen sclerosus (L90.0) Active confirmed Problem 802610414 Blindness of bot h eyes (H54.3) Active confirmed Problem Diverticular disease of colon (550346662) Colonic diverticular disease (K57.30) Active confirmed Problem Gastroesophageal reflux disease (297209483) Gastroesophageal reflux disease, unspecified whether esophagitis present (K21.9) Active confirmed Problem Osteoarthritis of hi p (292640735) Osteoarthritis of hip (715.15) 2017 Active confirmed Brijesh-98 5911- Problem Essential hypertension (65507118) Essential hypertension (401.1) 2017 Active confirmed Brijesh-98 5911- Problem Hypercholesterolemia (33183038) Hypercholesterolemia (272.0) 2017 Problem resolved confirmed [id number]-98 5911- Problem Backache (269343398) Mid back pa in (724.5) 2017 Problem resolved confirmed Brijesh-98 5911- Problem Bradycardia (81634836) Bradycardia (427.89) 2017 Problem resolved confirmed [id number]-98 [id number]- Problem Low back pain (436377589) Lower back pain (724.2) 2017 Problem resolved confirmed Brijesh-98 [id number]- Problem Impacted cerumen (07398734) External cerumen impaction (380.4) 2017 Problem resolved confirmed Brijesh-98 5911- Vital Signs Heart Rate 63 /min 06/16/2024 Temperature 97.6 degrees Fahrenheit 06/16/2024 Respiratory Rate 18 /min 06/16/2024 Blood pressure diastolic 71 mm Hg 06/16/2024 Oximetry 96 % 06/16/2024 Height-cm 160.02 cm 06/16/2024 Weight-kg 72.12 kg 06/16/2024 Height 63 in 06/16/2024 Blood pressure systolic 130 mm Hg 06/16/2024 Weight 159 lbs 06/16/2024 BMI 28.16 kg/m2 06/16/2024 Encounters Encounter Location Date Provider Diagnosis [facility] [address] [place] [address] 07/25/2024 Russ Chavira Gastroesophageal reflux disease, unspecified whether esophagitis present K21.9 and Chronic diarrhea K52.9 [facility] [address] [place] [address] 05/17/2024 Pastor Serra Lower abdominal pain R10.30 ; Chronic diarrhea K52.9 ; Chronic GERD K21.9 ; Family history of Crohn's disease Z83.79 ; Essential hypertension 401.1 ; Essential hypertension I10 ; Chronic gout without tophus, unspecified cause, unspecified site M1A.9XX0 ; Blindness of both eyes H54.3 and Abnormal cytological findings in specimens from other digestive organs and abdominal cavity R85.69 [facility] [address] [place] [address] 06/16/2024 Pastor Serra Chronic diarrhea K52 .9 ; Chronic GERD K21.9 ; NSAID long-term use Z79.1 ; Family history of Crohn's disease Z83.79 ; History of gout Z87.39 and Blindness of both eyes H54.3 [facility] [address] [place] [address] 08/04/2024 Russ Chavira [facility] [address] [place] [address] 08/15/2024 Pastor Serra Abnormal pancreatic function test R94.8 [facility] [address] [place] [address] 05/05/2024 Pastor Serra [facility] [address] [place] [address] 05/17/2024 Pastor Serra [facility] [address] [place] [address] 06/24/2024 Pastor Serra [facility] [address] [place] [address] 07/21/2024 Pastor Serra Assessments Encounter Date Diagnosis (ICD Code) Assessment Notes Treatment Notes Treatment Clinical Notes Section Notes 05/17/2024 Lower abdominal pain (ICD-10 - R10.30) Labs then advanced imaging, followed by EGD and colonoscopy if no acute diverticulitis. Differential diagnosis includes C. difficile colitis, diverticulitis, inflammatory bowel disease, malignancy. Follow-up within 2 to 4 weeks for reevaluation in clinic after testing. Avoid artificial sweeteners and limit dairy products. For now, push fluids, half Gatorade, half water, consider Lomotil if needed. Patient and her son report understanding and agreement with plan of care. 05/17/2024 Chronic diarrhea (ICD-10 - K52.9) 06/16/2024 Chronic GERD (ICD-10 - K21.9) 06/16/2024 Chronic diarrhea (ICD-10 - K52.9) Hold all NSAIDs for now. Continue Tylenol, topical Voltaren, other meds for gout per PCP.Complete labs ahead of EGD and colonoscopy ordered in previous encounter. Recommend diagnostic colonoscopy for further evaluation with endoscopic intervenion as indicated. Colonoscopy procedure, risks, benefits, potential complications, and potential interventions discussed. Bowel preparation was discussed and written instructions provided. Questions answered to apparent satisfaction. Verbalizes understanding. Desires to proceed with the proposed plan. Schedule colonoscopy with __Dr. Chavira Colonoscopy bowel prep sent to [facility] and instructions were reviewed with the patient. Advised to avoid any OTC supplements, NSAIDs, and aspirin 3 days prior to endoscopy. Follow-up to be arranged based on endoscopy findings and interventions 08/15/2024 Abnormal pancreatic function test (ICD-10 - R94.8) 07/25/2024 Gastroesophageal reflux disease, unspecified whether esophagitis present (ICD-10 - K21.9) Diagnostic EGD today 07/25/2024 Chronic diarrhea (ICD-10 - K52.9) Diagnostic colonoscopy today. 06/16/2024 NSAID long-term use (ICD-10 - Z79.1) 05/17/2024 Chronic GERD (ICD-10 - K21.9) 05/17/2024 Family history of Crohn's disease (ICD-10 - Z83.79) 06/16/2024 Family history of Crohn's disease (ICD-10 - Z83.79) 06/16/2024 History of gout (ICD-10 - Z87.39) 05/17/2024 Essential hypertension (ICD9-CM - 401.1) [id number] 05/17/2024 Essential hypertension (ICD-10 - I10) 06/16/2024 Blindness of both eyes (ICD-10 - H54.3) 05/17/2024 Chronic gout without tophus, unspecified cause, unspecified site (ICD-10 - M1A.9XX0) 05/17/2024 Blindness of both eyes (ICD-10 - H54.3) 05/17/2024 Abnormal cytological findings in specimens from other digestive organs and abdominal cavity (ICD-10 - R85.69) Plan Of Treatment Pending Test Test Name Order Date Amylase (B) 88848 08/15/2024 CBC w\ Auto Diff 03903 05/17/2024 Comprehensive Metabolic Panel (CMP) 8005 3 05/17/2024 Ferritin 70528 05/17/2024 Iron Level 22008 05/17/2024 Lipase 42981 05/17/2024 Lipase 80333 08/15/2024 Calprotectin Fecal 74622 05/17/2024 C Diff Toxin EIA--78599 05/17/2024 Next Appt Details Provider Name:Pastor sheppard, 08/22/2024 11:00:00 AM, [address], [place], [address], Insurance Providers Payer Name Payer Address Payer Phone Subscriber Number Group Number Insured Name Patient Relationship to Insured Coverage Start Date Coverage End Date [employer] Medicare Replacement [address] [address] [place] [id number] Jami Salmon Self - patient is the insured Medical (General) History Medical History History ICD Code Irritable bowel syndrome Gout Degenerative bone disease Eczema Cataracts, bilateral Glaucoma Bradycardia Essential hypertension Hypercholesterolemia Back pain Osteoarthritis, hip Covid, 06/2021 Surgical History Surgery Date(Month/Year) Colonoscopy- [place] - 10 yr recall - d iverticulosis only 2014 (B) eye removal 06/2023 Cataract surgery; bilateral Back surgery x 5 Ovary removal; left (B) Hip replacement Hospitalization History Reason Date(Month/Year) Back surgery Ovary removal Hip replacement
[2024-08-21 23:39] VITALS: BP 96/61; PULSE 82; RESP 18; TEMP 36.8; O2SAT 94
[2024-08-22] VITALS (9 sets, daily range): BP systolic 90–102; BP diastolic 48–65; PULSE 58–89; RESP 16; O2SAT 90–99
--- NOTE | 2024-08-22 01:28 | W.ED.NAVMDI ---
HPI - Nausea/Vomiting/Diarrhea General: Chief complaint: Nausea/Vomiting/Diarrhea Stated complaint: V\D\ Time Seen by Provider: 08/22/24 01:16 History of Present Illness: 73-year-old pleasant female complaining symptoms of vomiting and diarrhea with intermittent belly pain since February. She has had extensive workup including CT scan, blood work, colonoscopy. She is post to see her GI doctor tomorrow in [place] after a colonoscopy recently. She had multiple episodes of vomiting and diarrhea today, and began to get weak. Family member notes that her muscles were twitching in her legs, and she was weak, fell back on her back due to the weakness. Her blood pressure is somewhat low on arrival. He states she is lost around 20 pounds over the last few months because of this illness. No recent antibiotics. Related Data Home Medications ?Medication ?Instructions ?Recorded ?Confirmed aspirin 81 mg tablet,delayed 81 mg PO QAM 09/03/21 08/10/24 release (Adult Low Dose Aspirin) fexofenadine 180 mg tablet 180 mg PO QAM 09/03/21 08/10/24 (Allergy Relief (fexofenadine)) inulin 2 gram chewable tablet 2 g PO DAILY PRN Constipation 09/03/21 08/10/24 (Fiber Gummies) coenzyme Q10 10 mg capsule 10 mg PO TID 05/21/23 08/10/24 allopurinol 300 mg tablet 300 mg PO QAM 08/10/24 08/10/24 amlodipine 2.5 mg tablet 2.5 mg PO DAILY 08/10/24 08/10/24 amlodipine 5 mg tablet 5 mg PO DAILY 08/10/24 08/10/24 clobetasol 0.05 % topical cream 1 applic topical BID 08/10/24 08/10/24 neomycin 3.5 mg/g-polymyxin B 1 applic ophthalmic (eye) DAILY 08/10/24 08/10/24 10,000 unit/g-dexameth 0.1 % eye oint omeprazole 40 mg capsule,delayed 40 mg PO DAILY 08/10/24 08/10/24 release pravastatin 40 mg tablet 40 mg PO QPM 08/10/24 08/10/24 triamcinolone acetonide 0.1 % 1 applic topical BID 08/10/24 08/10/24 topical cream valsartan 160 mg tablet 160 mg PO QAM 08/10/24 08/10/24 Previous Rx's ?Medication ?Instructions ?Recorded Orthopedic shoes with a 3cm #1 ea 11/30/23 external lift to left gabapentin 300 mg capsule 300 mg PO TID #270 caps 12/17/23 celecoxib 200 mg capsule (Celebrex) 200 mg PO BID #180 caps 05/05/24 ondansetron 4 mg disintegrating 4 mg PO Q6H PRN nausea and 08/22/24 tablet vomiting #14 tabs Allergies Allergy/AdvReac Type Severity Reaction Status Date / Time cefdinir AdvReac Severe ADR-Diarrhe Verified 08/21/24 23:44 a PFS ED PFSH: Medical History Chronic GERD Family history of Crohn's disease Diarrhea Left shoulder pain Enrolled in chronic care management Hypertension Blind Gout Glaucoma Hyperlipidemia Chronic pain Cataract and glaucoma syndrome Surgical History History of bilateral total hip arthroplasty History of left oophorectomy History of back surgery Family History Mother Hypertension Heart disease Cancer breast cancer with mets Family/Other Diabetes Cancer Social History Smoking and tobacco/nicotine status: never used tobacco/nicotine Alcohol intake: never Substance/Drug Use: never Caregiver/support person: Yes (son) Lives independently: Yes Housing: House Marital status: / Current occupational status: disabled Current gender identity: Female Special haydee needs: No Female Reproductive History: Para: 2 Physical Exam Const: COMMON NORMALS: no acute distress GENERAL APPEARANCE: cooperative and frail appearing (Mildly) HENMT: COMMON NORMALS: normocephalic, atraumatic and Normal external nose present HEAD & SCALP: normocephalic and atraumatic FACE & SINUS: normal facial exam and face symmetric NOSE: Normal external nose present Eye: COMMON NORMALS: Equal, round and reactive pupils present and EOMs intact bilaterally PUPIL: Yes Equal, round and reactive pupils present Neck/C-Spine: GENERAL: Yes trachea midline Chest: CHEST: Yes Symmetrical chest wall rise Resp: COMMON NORMALS: normal respiratory effort, No retractions, No use of accessory muscles and clear to auscultation bilaterally AUSCULTATION: clear to auscultation bilaterally Cardio: COMMON NORMALS: regular rate and regular rhythm RATE: regular rate RHYTHM: regular rhythm GI: COMMON NORMALS: Normal to inspection, nondistended, normoactive bowel sounds present PALPATION: Yes Tenderness to palpation present (GI) Details: LLQ and RLQ Extremity: COMMON NORMALS: no pedal edema Neuro: DANGELO COMA SCALE: document GCS findings Dangelo coma scale eye opening: Spontaneous [place] coma scale verbal response: Orientated Dangelo coma scale motor response: Obey commands Dangelo coma scale total score: 15 SENSORY EXAM: Yes extremities (intact) Psych: COMMON NORMALS: speech normal SPEECH: Yes normal speech Skin: COMMON NORMALS: no rashes or lesions noted GENERAL SKIN EXAM: no rashes or lesions noted Course Vital Signs: Vital signs: Vital Signs Temperature 98.3 F 08/21/24 23:39 Pulse Rate 74 08/22/24 06:00 Respiratory Rate 16 08/22/24 06:00 Blood Pressure 91/59 08/22/24 06:00 Pulse Oximetry 90 08/22/24 06:00 Oxygen Delivery Me thod Room Air 08/22/24 06:00 MDM - Nausea/Vomiting/Diarrhea Medical Decision Making Blood pressure is low other vitals are stable. Blood pressures improved after 2 L bolus. She is still not febrile or tachycardic. Hemoglobin is 11. White blood cell count is 11.5. Patient had complained of some chronic back pain. There is no acute fracture on L-spine imaging. Her CRP is 21. Lipase is normal. Liver enzymes are normal. Her creatinine is up to 2.6 from her baseline of 1+. Her bicarbonate level is 11. BUN is 56. As above she has received 2 L. She still was unable to urinate. Bladder scan shows 226 mL in her bladder. Instructed to straight cath for urine. As she has had 2 L and getting a third, we will repeat BMP to see if bicarbonate and creatinine have improved at all. If not, we will likely warrant admission. If so, she could go home to follow-up with her GI doctor regarding the diarrhea. BMP is improved. Creatinine is falling. Bicarbonate is rising. No urinalysis evidence of UTI. Will discharge as above. Lab Data 08/22/24 01:46 08/22/24 06:18 Radiology Impressions Lumbar Spine X-Ray 08/22/24 01:30 IMPRESSION: No plain film evidence of acute fracture. Laboratory Results WBC 11.50 10^3/uL (3.29-11.43) H 08/22/24 01:46 RBC 3.08 10^6/uL (3.85-5.65) L 08/22/24 01:46 Hgb 10.70 g/dL (11.27-16.99) L 08/22/24 01:46 Hct 34.3 % (36-47) L 08/22/24 01:46 MCV 111.4 fl (85-98) H 08/22/24 01:46 MCH 34.7 pg (27-33) H 08/22/24 01:46 MCHC 31.2 g/dL (30-55) 08/22/24 01:46 RDW 13.6 % (12.1-15.1) 08/22/24 01:46 Plt Count 203 10^3/cmm (157-399) 08/22/24 01:46 MPV 9.1 fL (7.4-10.4) 08/22/24 01:46 Neut % (Auto) 80.2 % 08/22/24 01:46 Lymph % (Auto) 9.0 % 08/22/24 01:46 [place] % (Auto) 10.0 % 08/22/24 01:46 Eos % (Auto) 0.1 % 08/22/24 01:46 Baso % (Auto) 0.4 % 08/22/24 01:46 Neut # (Auto) 9.22 10^3/uL (1.8-7.7) H 08/22/24 01:46 Lymph # (Auto) 1.0 10^3/uL (0.8-4.8) 08/22/24 01:46 [place] # (Auto) 1.2 10^3/uL (0.2-0.9) H 08/22/24 01:46 Eos # (Auto) 0.0 10^3/uL (0.0-0.8) 08/22/24 01:46 Baso # (Auto) 0.1 10^3/uL (0.0-0.1) 08/22/24 01:46 Nucleated RBC % (auto) 0 % 08/22/24 01:46 Nucleated RBCs # 0.0 /100WBC 08/22/24 01:46 ESR 3 mm/hr (0-15) 08/22/24 01:46 Sodium 140 mmol/L (136-145) 08/22/24 06:18 Potassium 5.0 mmol/L (3.5-5.1) 08/22/24 06:18 Chloride 113 mmol/L (98-107) H 08/22/24 06:18 Carbon Dioxide 13 mmol/L (22-29) L 08/22/24 06:18 Anion Gap 19.0 (5-19) 08/22/24 06:18 BUN 53 mg/dL (8-23) H 08/22/24 06:18 Creatinine 2.2 mg/dL (0.5-0.9) H 08/22/24 06:18 GFR Calculation Not Reportable 08/22/24 06:18 Glucose 108 mg/dL (65-115) 08/22/24 06:18 Calculated Osmolality 305 mOsm/kg (285-295) H 08/22/24 06:18 Lactic Acid 0.7 mmol/L (0.5-2.2) 08/22/24 01:46 Calcium 9.5 mg/dL (8.5-10.5) 08/22/24 06:18 Magnesium 2.2 mg/dL (1.7-2.3) 08/22/24 01:46 Total Bilirubin 0.4 mg/dL (0.15-1.2) 08/22/24 01:46 AST 26 U/L (0-32) 08/22/24 01:46 ALT 16 U/L (0-33) 08/22/24 01:46 Alkaline Phosphatase 77 U/L (35-105) 08/22/24 01:46 Creatine Kinase 205 U/L (26-192) H 08/22/24 01:46 C-Reactive Protein 20.7 mg/L (0.0-4.9) H 08/22/24 01:46 Total Protein 7.1 g/dL (6.6-8.7) 08/22/24 01:46 Albumin 4.0 g/dL (3.5-5.2) 08/22/24 01:46 Globulin 3.1 g/dL (1.3-4.6) 08/22/24 01:46 Lipase 31 U/L (13-60) 08/22/24 01:46 Urine Color Yellow (Yellow) 08/22/24 06:25 Urine Appearance Cloudy (CLEAR) A 08/22/24 06:25 Urine pH 5.0 (5-7) 08/22/24 06:25 Ur Specific [place] 1.017 (1.005-1.030) 08/22/24 06:25 Urine Protein 1+ (Negative) A 08/22/24 06:25 Urine Glucose (UA) Negative (Normal) 08/22/24 06:25 Urine Ketones Negative (Negative) 08/22/24 06: Urine Blood Negative (Negative) 08/22/24 06: Urine Nitrate Negative (Negative) 08/22/24 06:25 Urine Bilirubin Negative (Negative) 08/22/24 06:25 Urine Urobilinogen 1.0 mg/dL (Negative) 08/22/24 06:25 Ur Leukocyte Esterase Negative (Negative) 08/22/24 06:25 Amorphous Sediment Not Reportable 08/22/24 06:25 All radiology interpretation(s) finalized by discharge Discharge Plan Discharge Patient Disposition: Home Clinical Impression: Chronic diarrhea, Acute kidney injury, Acute dehydration Condition: Stable Prescriptions: New ondansetron 4 mg tablet,disintegrating 4 mg PO Q6H PRN (Reason: nausea and vomiting) Qty: 14 0RF No Action coenzyme Q10 10 mg capsule 10 mg PO TID aspirin [Adult Low Dose Aspirin] 81 mg tablet,delayed release (DR/EC) 81 mg PO QAM fexofenadine [Allergy Relief (fexofenadine)] 180 mg tablet 180 mg PO QAM Fiber Gummies 2 gram tablet,chewable 2 g PO DAILY PRN (Reason: Constipation) gabapentin 300 mg capsule 300 mg PO TID Qty: 270 3RF (DME) Orthopedic shoes with a 3cm external lift to left See Rx Instructions .Route .MEDSUPPLY Qty: 1 0RF Rx Instructions: As directed celecoxib [Celebrex] 200 mg capsule 200 mg PO BID Qty: 180 3RF omeprazole 40 mg capsule,delayed release(DR/EC) 40 mg PO DAILY neomycin-polymyxin B-dexameth 3.5 mg/g-10,000 unit/g-0.1 % ointment 1 applic ophthalmic (eye) DAILY pravastatin 40 mg tablet 40 mg PO QPM clobetasol 0.05 % cream 1 applic topical BID amlodipine 2.5 mg tablet 2.5 mg PO DAILY Rx Instructions: Along with 5mg to=7.5mg total amlodipine 5 mg tablet 5 mg PO DAILY Rx Instructions: Along with 2.5mg to=7.5mg total triamcinolone acetonide 0.1 % cream 1 applic topical BID allopurinol 300 mg tablet 300 mg PO QAM valsartan 160 mg tablet 160 mg PO QAM Discharge Orders: Discharge ED (Routine); Ordered 08/22/24 Ordered By: Irineo Coleman Referrals: Suzan Angelo FNP [Primary Care Provider, Family Practice] Patient Instructions: Diarrhea - Adult, Dehydration (ED), Opioid Safety, Pain Management, Patient Portal & Omar Instructions Activity Restrictions/Additional Instructions: Follow-up with your GI doctor later today as scheduled. Push oral hydration. Return for problems. Medication prescribed may help with nausea and vomiting. Print Language: Macedonian Coding Level of Care Code ED Surveyor Mine for Maris Abraham
--- NOTE | 2024-08-22 01:30 | XRR_ITS ---
PROCEDURE INFORMATION: Exam: XR Lumbosacral Spine Exam date and time: 08/22/2024 1:43 AM Age: 73 years old Clinical indication: Injury or trauma; Blunt trauma (contusions or hematomas); Prior surgery; Surgery date: 6+ months; Surgery type: Lumbar fusion. Stimulator. Bilat naya; Fall with low back pain. ; Additional info: Fall low back pain TECHNIQUE: Imaging protocol: Radiologic exam of the lumbosacral spine. Views: 2 or 3 views. COMPARISON: No relevant prior studies available. FINDINGS: Tubes, catheters and devices: Spinal stimulator in place. Bones/joints: Moderate levoscoliosis with a rotatory component. Multilevel degenerative listhesis. No plain film evidence of acute fracture. Status post laminectomy and fusion L5-S1. Lvwabwzv-gv-[id number] multilevel degenerative change. Soft tissues: The soft tissues are within normal limits. XR/XR lumbar spine 2-3V* [id number] IMPRESSION: No plain film evidence of acute fracture.
[2024-08-22 01:52] LABS: Basophils # 0.1 10^3/uL (0.0-0.1); Basophils % 0.4 %; Eosinophils % 0.1 %; Hematocrit 34.3 % (36-47); Mean Corpuscular HGB Conc 31.2 g/dL (30-55); Mean Corpuscular Hemoglobin 34.7 pg (27-33); Mean Corpuscular Volume 111.4 fl (85-98); Mean Platelet Volume 9.1 fL (7.4-10.4); Monocytes # 1.2 10^3/uL (0.2-0.9); Neutrophils # 9.22 10^3/uL (1.8-7.7); Neutrophils % 80.2 %; Nucleated Red Blood Cells % 0 %; Platelet Count 203 10^3/cmm (157-399); Red Blood Count 3.08 10^6/uL (3.85-5.65); Red Cell Distribution Width 13.6 % (12.1-15.1)
[2024-08-22 02:02] LABS: Erythrocyte Sedimentation Rate 3 mm/hr (0-15)
[2024-08-22] MEDS: morphine 4 mg/mL SDV 1 mL 2 MG IVP (02:02)
[2024-08-22] MEDS: ondansetron 2 mg/ML SDV 2 mL 4 MG IVP (02:02)
[2024-08-22] MEDS: sodium chloride 0.9% 1,000 ML 999 ML IV ×3 (02:05→07:07)
[2024-08-22 02:15] LABS: Lactic Sepsis W/Reflex 0.7 mmol/L (0.5-2.2)
[2024-08-22 02:17] LABS: Alanine Aminotransferase 16 U/L (0-33); Alkaline Phosphatase 77 U/L (35-105); Blood Urea Nitrogen 56 mg/dL (8-23); C Reactive Protein 20.7 mg/L (0.0-4.9); Calcium 10.5 mg/dL (8.5-10.5); Carbon Dioxide 11 mmol/L (22-29); Chloride 107 mmol/L (98-107); Creatine Phosphokinase 205 U/L (26-192); Globulin 3.1 g/dL (1.3-4.6); Glucose 112 mg/dL (65-115); Lipase 31 U/L (13-60); Magnesium 2.2 mg/dL (1.7-2.3); Osmolality Calculated 294 mOsm/kg (285-295); Sodium 134 mmol/L (136-145); Total Bilirubin 0.4 mg/dL (0.15-1.2); Total Protein 7.1 g/dL (6.6-8.7)
[2024-08-22 02:18] LABS: Anion Gap 20.6 (5-19); Aspartate Amino Transferase 26 U/L (0-32); Potassium 4.6 mmol/L (3.5-5.1)
[2024-08-22 06:38] LABS: Bilirubin Urine Negative (Negative); Blood Urine Negative (Negative); Glucose Urine UA Negative (Normal); Ketones Urine Negative (Negative); Leukocyte Esterase Urine Negative (Negative); Nitrate Urine Negative (Negative); Protein Urine 1+ (Negative); Specific Gravity, Urine 1.017 (1.005-1.030); Urine Appearance Cloudy (CLEAR); Urine Color Yellow (Yellow)
[2024-08-22 06:41] LABS: Blood Urea Nitrogen 53 mg/dL (8-23); Calcium 9.5 mg/dL (8.5-10.5); Carbon Dioxide 13 mmol/L (22-29); Chloride 113 mmol/L (98-107); Glucose 108 mg/dL (65-115); Osmolality Calculated 305 mOsm/kg (285-295); Sodium 140 mmol/L (136-145)
[2024-08-22 06:43] LABS: Add Urine Microscopic? YES; Bacteria Urine None Seen /hpf; Hyaline Casts Urine 95.14 /lpf; RBC Urine 0-2 /hpf (0-2); Squamous Epithelial Cell Urine 0-5 /hpf (0-5); WBC Urine 0-5 /hpf (0-5)
[2024-08-22 07:20] LABS: UA Slide Review UA Slide Review Perf
[2024-08-22 07:21] LABS: Amorphous Sediment Urine 2+ /hpf; Mucus Urine 1+ /hpf; Other Casts Urine EPITHELIAL /lpf
[2024-08-22 07:22] LABS: Add Urine Culture? No; Coarse Granular Casts Urine 0-4 /lpf
== END 2024-08-22 07:06 | disposition home or self-care (01) ==
PROVIDERS: Emergency Provider Emergency Medicine; PCP Nurse Practitioner Family
DX: R19.7 Diarrhea, unspecified (principal); E86.0 Dehydration; N17.9 Acute kidney failure, unspecified; Z79.82 Long term (current) use of aspirin; I10 Essential (primary) hypertension; E78.5 Hyperlipidemia, unspecified
CPT/HCPCS: 36415; 51798; 72100; 80048; 80053; 81001; 82550; 83605; 83690; 83735; 85025; 85651; 86140; 96361; 96374; 96375; 99284; J2270; J2405; J7030

== ENCOUNTER 2024-09-01 13:51 | Outpatient (CLI) | payer MEDICARE, SELFPAY ==
--- NOTE | 2024-09-01 13:58 | XR_ITS ---
WS: [id number] Exam: XR KUB [id number] Date/Time of Exam: 09/01/2024 2:00 PM Reason For Exam: OTHER FECAL ABNORMALITIES No bowel obstruction or free air. No sign of organ enlargement. An opaque density is seen in the RIGHT pelvis. Significance of this is undetermined but this could be a marker in the bowel. Bilateral total hip replacements. Operative fusion of the lumbosacral junction with hardware. Neurostimulator device in place just above the fusion. Levoscoliosis of the lumbar spine. XR/XR KUB [id number] IMPRESSION: 1. No acute abdominal finding. 2. Opaque densities seen in the RIGHT pelvis that is of uncertain significance. This could be a marker in the GI tract.
== END 2024-09-01 13:52 | disposition home or self-care (01) ==
LOC: RAD 13:52
PROVIDERS: PCP Nurse Practitioner Family; Visit Provider Internal Medicine Gastroenterology
DX: R19.5 Other fecal abnormalities (principal)
CPT/HCPCS: 74018

== ENCOUNTER → 2025-01-03 11:11 | Outpatient (BNVA) | payer MEDICARE, SELFPAY | PROVIDERS: PCP Nurse Practitioner Family; Visit Provider Nurse Practitioner Family | DX: I10 Essential (primary) hypertension (principal); Z79.899 Other long term (current) drug therapy | CPT/HCPCS: 80053; 80061; 83036; 84443; 84550; 85025 ==